=== PATIENT | female | born 1955 | race Caucasian/White ===

== ENCOUNTER → 2018-07-30 | Outpatient (CLI) | payer BC ==
[~2018-07-30] MED LIST: ESOM40CA42 PO; FLU20 PO; LEVO112T43 PO
--- NOTE | 2018-07-30 16:12 | RADIOLOGY IMAGING REPORT ---
FACILITY: [facility] PATIENT NAME: STEVAN VUONG : [id number] MR: [id number] V: [id number] EXAM DATE: [id number] ORDERING PHYSICIAN: ANDREA IBRAHIM TECHNOLOGIST: Zaira Curiel PROCEDURE:BILATERAL DIGITAL SCREENING MAMMOGRAM WITH CAD ASSISTED INTERPRETATION & 3D TOMOSYNTHESIS COMPARISON:Prior mammograms 06/16/17, 06/13/16. INDICATIONS:Screening FINDINGS: Scattered fibroglandular tissue noted. No suspicious mass, microcalcification or architectural distortion. No change compared to priors. DIAGNOSTIC CATEGORY 1--NEGATIVE. RECOMMENDATIONS: ROUTINE MAMMOGRAM AND CLINICAL EVALUATION. IMPRESSION: BIRADS 1: Negative. Dictated by: Yash Powell on 07/30/2018 at 14:01 Transcribed by: CHAN on 07/30/2018 at 14:07 Approved by: Yash Powell on 07/30/2018 at 16:11 [facility]
== END ==
LOC: MAMO 01:34
PROVIDERS: ATTEND Family Medicine
DX: Z12.31 Encounter for screening mammogram for malignant neoplasm of breast (principal)
CPT/HCPCS: 77063; 77067